=== PATIENT | male | born 1965 | race Caucasian/White ===

== ENCOUNTER 2017-07-05 23:19 | Emergency (ER) | payer MEDICAID ==
[~2017-07-05] VITALS: Ht 172.7 cm; Wt 69.5 kg
[2017-07-05 23:22] VITALS: BP 118/76
== END 2017-07-06 01:20 | disposition home or self-care (01) ==
LOC: ED 07-06 01:00
DX: S20.212A Contusion of left front wall of thorax, initial encounter (principal); J44.9 Chronic obstructive pulmonary disease, unspecified; F17.210 Nicotine dependence, cigarettes, uncomplicated; W22.8XXA Striking against or struck by other objects, initial encounter; Y93.89 Activity, other specified; Y99.8 Other external cause status; Y92.099 Unspecified place in other non-institutional residence as the place of occurrence of the external cause
CPT/HCPCS: 82962; 99284

== ENCOUNTER 2018-08-07 13:06 | Emergency (ER) | payer MEDICAID ==
[~2018-08-07] VITALS: Ht 172.7 cm; Wt 63.2 kg
[2018-08-07 13:23] VITALS: BP 130/76
== END 2018-08-07 14:48 | disposition home or self-care (01) ==
LOC: ED 14:42
DX: S01.01XD Laceration without foreign body of scalp, subsequent encounter (principal); J44.9 Chronic obstructive pulmonary disease, unspecified
CPT/HCPCS: 99281

== ENCOUNTER 2019-02-07 12:55 | Emergency (ER) | payer MEDICAID ==
[~2019-02-07] VITALS: Ht 172.7 cm; Wt 64.1 kg
--- NOTE | 2019-02-07 13:24 | NUR ---
PT AMBULATORY TO ROOM 15 W/ C/O L SIDE CP AND SHOULDER PAIN STARTED YESTERDAY AFTER PT TRIPPED AND FELL ON A CURB. PT DENIES LOC/DIZZINESS/LIGHTHEADEDNESS. PT DENIES ANY CARD/PULM HX. PT RESTING ON GURNEY. NADN. VSS. MONITORS APPLIED. WARM BLANKET PROVIDED. ERP DR. ARTHUR AT BEDSIDE.
[2019-02-07] MEDS ORDERED: HYDROmorphone 1 MG/ML, 1ML INJ IM ONE (13:30)
[2019-02-07] MEDS ORDERED: HYDROmorphone 1 MG/ML, 1ML VIAL ONE (13:35)
[2019-02-07 14:23] VITALS: BP 107/46
--- NOTE | 2019-02-07 14:23 | NUR ---
PT RESTING ON GURNEY. NADN. VITALE.
[2019-02-07] MEDS ORDERED: OXYcodone/APAP 5/325MG TABLET ONE (14:25)
[2019-02-07] MEDS ORDERED: CEFDINIR 300 MG CAPSULE ONE (14:25)
[2019-02-07] MEDS ORDERED: IBUPROFEN 600 MG TABLET ONE (14:25)
[2019-02-07] MEDS ORDERED: CEFDINIR 300 MG CAPSULE PO ONE (14:30)
[2019-02-07] MEDS ORDERED: IBUPROFEN 200 MG TABLET PO ONE (14:30)
[2019-02-07] MEDS ORDERED: OXYcodone/APAP 5/325MG TABLET PO ONE (14:30)
--- NOTE | 2019-02-07 15:26 | NUR ---
INCENTIVE SPIROMETER TEACHING COMPLETED. PT DID RETURN DEMONSTRATION.
== END 2019-02-07 15:46 | disposition home or self-care (01) ==
LOC: ED 13:52
DX: S20.212A Contusion of left front wall of thorax, initial encounter (principal); J44.9 Chronic obstructive pulmonary disease, unspecified; F17.200 Nicotine dependence, unspecified, uncomplicated; W01.0XXA Fall on same level from slipping, tripping and stumbling without subsequent striking against object, initial encounter; Y93.89 Activity, other specified; Y92.410 Unspecified street and highway as the place of occurrence of the external cause; Y99.8 Other external cause status
CPT/HCPCS: 71045; 71250; 93005; 96372; 99284; J1170

== ENCOUNTER 2019-02-12 13:39 | Emergency (ER) | payer MEDICAID ==
[~2019-02-12] VITALS: Ht 172.7 cm; Wt 64.6 kg
[2019-02-12 18:27] VITALS: BP 128/84
== END 2019-02-12 18:50 | disposition home or self-care (01) ==
LOC: ED 17:52
DX: R07.89 Other chest pain (principal); J45.909 Unspecified asthma, uncomplicated; F17.200 Nicotine dependence, unspecified, uncomplicated
CPT/HCPCS: 36415; 71046; 71275; 80048; 82040; 84484; 85025; 93005; 94640; 96374; 99284; J1885; J7620; Q9967

== ENCOUNTER 2020-01-29 18:00 | Emergency (ER) | payer MEDICAID ==
[~2020-01-29] VITALS: Ht 172.7 cm; Wt 74.0 kg
[2020-01-29 18:03] VITALS: BP 119/79
--- NOTE | 2020-01-29 18:05 | NUR ---
Assumed care of patient. Patient states, "I've been poisoned!" Patient reports drinking 2 hurricanes on an empty stomach today. Patient yelling at nurse, "I have sun cancer!" Will contiue to monitor.
--- NOTE | 2020-01-29 18:45 | NUR ---
Provided with morgan peralta. Steady gait.
--- NOTE | 2020-01-29 18:45 | NUR ---
Jessy fall in [facility] - 01/29/20 at 1854 by MICHAEL Provided with meal fabian. Steady gate.
--- NOTE | 2020-01-29 19:22 | NUR ---
Patient hostile at DC. Steady gait. Refused to sign DC paperwork.
== END 2020-01-29 19:23 ==
LOC: ED 18:44
DX: F10.220 Alcohol dependence with intoxication, uncomplicated (principal); F17.210 Nicotine dependence, cigarettes, uncomplicated; Y90.9 Presence of alcohol in blood, level not specified
CPT/HCPCS: 99283; 99406